=== PATIENT | male | born 2005 | race Hispanic/Latino ===

== ENCOUNTER 2024-11-18 04:57 | Emergency (ER) | payer SELFPAY ==
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
--- NOTE | ~2024-11-18 | CT_ITS ---
EXAMINATION: CT BRAIN W/O DATE: 11/18/2024 06:19 INDICATION: TECHNIQUE: Computed tomography (CT) of the head was performed without intravenous contrast. The dose-length product was 1362.00 mGy-cm. COMPARISON: No prior studies for comparison. FINDINGS: Mild generalized atrophy, accelerated for age Normal alonzo-white differentiation. No acute intracranial hemorrhage, infarction, mass or mass effect. No ventriculomegaly or midline shift. Midline sagittal images demonstrate a normal corpus callosum, craniovertebral junction and sella turcica. Basilar cisterns are patent. Paranasal sinuses and mastoids are pneumatized. No depressed skull fractures. IMPRESSION: 1. No acute intracranial abnormality. Reviewed, dictated and finalized at location O.
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
[2024-11-18 04:55] VITALS: BP 142/91; PULSE 95; RESP 18; TEMP 36.6; O2SAT 97
--- NOTE | 2024-11-18 05:29 | PC.NURSE ---
Pt states he cannot provide urine sample at this time.
[2024-11-18 05:34] LABS: Hematocrit 42.8 % (42.0-52.0); Hemoglobin 14.9 g/dL (14.0-18.0); Immature Granulocyte Percent A 0.5 % (0-0.5); Lymphocytes Absolute Auto 1.90 K/mm3 (0.9-3.2); Mean Corpuscular HGB Conc 34.8 g/dl (32-36); Mean Corpuscular Hemoglobin 31.6 pg (26-34); Mean Corpuscular Volume 90.9 fl (80-100); Nucleated Red Blood Cells Absolute Auto 0.000 K/mm3 (0.0-0.012); Nucleated Red Blood Cells Perc 0.0 % (0.0-0.2); Platelet Count Result 299 k/mm3 (150-375); Red Blood Count 4.71 M/mm3 (4.6-6.20); White Blood Count 10.8 K/mm3 (4.5-10.0)
[2024-11-18] MEDS: ACETAMINOPHEN 500 MG TABLET 1000 MG PO (05:40)
--- NOTE | 2024-11-18 05:44 | PC.NURSE ---
laceration set up at bedside.
[2024-11-18 05:50] LABS: Alanine Aminotransferase 48 U/L (6-50); Albumin Level 5.0 g/dL (3.5-5.1); Alkaline Phosphatase 129 U/L (38-126); Anion Gap 14 mmol/L (4-12); Aspartate Amino Transferase 151 U/L (17-59); Bilirubin,Total 0.9 mg/dL (0.2-1.3); Blood Urea Nitrogen 6 mg/dL (9-20); Calcium 8.9 mg/dL (8.4-10.2); Carbon Dioxide 23 mmol/L (22-30); Chloride 105 mmol/L (98-107); Estimated CRCL calculation 122 ml/min; Estimated Glomerular Filt Rate > 60; Glucose 111 mg/dL (65-110); Magnesium 2.2 mg/dL (1.6-2.3); Potassium 3.7 mmol/L (3.4-5.0); Sodium 142 mmol/L (137-145); Total Protein 8.4 g/dL (6.3-8.2)
[2024-11-18 05:56] LABS: INR 1.1; Prothrombin Time 14.3 Seconds (11.1-14.7)
[2024-11-18 06:04] LABS: Lipase 58 U/L (23-300)
[2024-11-18 06:13] LABS: Partial Thromboplastin Time 23.1 Seconds (22.3-36.8)
[2024-11-18 07:12] LABS: Cannabinoid Screen Urine Positive (Negative)
[2024-11-18 07:24] LABS: Add Urine Microscopic? YES; Appearance Urine Clear (Clear); Glucose Urine UA Negative (Negative); Leukocyte Esterase Ur Negative LEU/UL (Negative); Need Manual Microscopic Reviewed; Nitrate Urine Negative (Negative); Specific Grav Ur 1.031 (1.001-1.035)
[2024-11-18 07:30] VITALS: BP 136/88; PULSE 88; RESP 16; TEMP 36.6; O2SAT 100
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
== END 2024-11-18 08:16 | disposition home or self-care (01) ==
LOC: ANHED 07:55
PROVIDERS: Emergency Provider Emergency Medicine
DX: S81.822A Laceration with foreign body, left lower leg, initial encounter (principal); S81.812A Laceration without foreign body, left lower leg, initial encounter; W25.XXXA Contact with sharp glass, initial encounter; W45.8XXA Other foreign body or object entering through skin, initial encounter
CPT/HCPCS: 12001; 12034; 36415; 70450; 71045; 71260; 72125; 72170; 73590; 74177; 80053; 80307; 81001; 82077; 83690; 83735; 85025; 85610; 85730; 96374; 99284; A9270; J0690; Q9967